=== PATIENT | male | born 1990 | race Caucasian/White ===

== ENCOUNTER 2023-08-05 23:38 | Emergency (ER) | payer OTHER ==
[~2023-08-05] VITALS: Ht 162.6 cm; Wt 76.0 kg
[2023-08-05 23:49] VITALS: BP 120/79; PULSE 70; RESP 16; TEMP 98.1; O2SAT 97
[2023-08-06 00:31] LABS: CLARITY URINE CLEAR (CLEAR); COLOR URINE YELLOW (YELLOW); GLUCOSE URINE NEGATIVE (NEGATIVE); KETONES URINE NEGATIVE (NEGATIVE); LEUKOCYTE ESTERASE URINE NEGATIVE (NEGATIVE); NITRITE URINE NEGATIVE (NEGATIVE); OCCULT BLOOD URINE NEGATIVE (NEGATIVE); PROTEIN URINE NEGATIVE (NEGATIVE); SPECIFIC GRAVITY URINE 1.004 (1.005-1.030); UROBILINOGEN URINE 0.2 E.U./dL (0.2-1.0)
[2023-08-06 01:22] LABS: BASOPHILS % 0.4 % (0.0-2.0); EOSINOPHILS % 2.6 % (0.0-5.0); HEMATOCRIT. 48.9 % (42.0-52.0); HEMOGLOBIN. 16.6 g/dL (14.0-18.0); LYMPHOCYTES % 40.4 % (20.0-50.0); MEAN CORPUSCULAR HEMOGLOBIN 30.5 pg (28.0-32.0); MEAN CORPUSCULAR HGB CONC 34.1 g/dL (31.0-37.0); MEAN CORPUSCULAR VOLUME 89.6 fL (80.0-94.0); MEAN PLATELET VOLUME 10.1 fl (7.4-10.4); NEUTROPHILS % 48.6 % (40.0-76.0); PLATELET 237 x1000/uL (130-400); RED BLOOD CELL COUNT 5.45 mill/uL (4.7-6.1); RED CELL DISTRIBUTION WIDTH 13.9 % (11.6-14.6); WHITE BLOOD COUNT 6.8 x1000/uL (4.5-11.0)
[2023-08-06 01:38] LABS: ALANINE AMINOTRANSFERASE 62 IU/L (10-49); ALBUMIN 5.3 g/dL (3.2-4.8); ASPARTATE AMINOTRANSFERASE 47 IU/L (<34); BILIRUBIN TOTAL 0.4 mg/dL (0.1-1.0); CALCIUM 9.6 mg/dL (8.7-10.4); CARBON DIOXIDE 25 mEq/L (21-32); CHLORIDE 106 mEq/L (98-107); CREATININE 0.7 mg/dL (0.6-1.3); ETHANOL BLOOD 294 mg/dL (<10); GLUCOSE 107 mg/dL (70-105); POTASSIUM 4.4 mEq/L (3.5-5.1); PROTEIN TOTAL 9.2 g/dL (6.0-8.3); SODIUM 141 mEq/L (136-145); UREA NITROGEN BLOOD 9 mg/dL (9-23)
== END 2023-08-06 01:26 | disposition home or self-care (01) ==
LOC: ER 23:47
DX: F10.129 Alcohol abuse with intoxication, unspecified (principal); Y90.8 Blood alcohol level of 240 mg/100 ml or more
CPT/HCPCS: 36415; 80053; 80320; 81003; 85025; 99283; G0480